=== PATIENT | male | born 1980 | race Two or more races ===

== ENCOUNTER 2017-04-08 00:27 | Emergency (ER) | payer SELFPAY ==
--- NOTE | 2017-04-08 00:28 | NUR ---
WALKED OUT OF MAINSPRING REVERSE WINDER GURNEY AND LEFT ER STATING "AM LEAVING".
== END 2017-04-08 00:43 | disposition left against medical advice (07) ==
LOC: ER 00:28
DX: Z53.21 Procedure and treatment not carried out due to patient leaving prior to being seen by health care provider (principal)